=== PATIENT | female | born 1975 ===

== ENCOUNTER → 2016-04-16 | Day surgery (SDC) | payer BC ==
[~2016-04-16] MED LIST: LACTATED RINGER'S 1000 ML INJ 1,000 ML ONE; METHYLERGONOVINE MALEATE 0.2 MG/ML VIAL ONE; MIDAZOLAM HCL 2 MG/2 ML VIAL ONE; ONDANSETRON HCL 4 MG/2 ML VIAL IV PUSH ONE; PROPOFOL 200 MG/20 ML AMP IV ONE; ceFAZolin 2 GM PREMIX 50 ML ONE
--- NOTE | 2016-04-20 19:58 | MP ---
cc: DUSTY ROTH DATE OF SURGERY 04/16/2016 PREOPERATIVE DIAGNOSIS Missed at 8 weeks gestation, history of type 1 diabetes. PROCEDURE D&C with suction. POSTOPERATIVE DIAGNOSIS Missed at 8 weeks gestation, history of type 1 diabetes. The patient maternal blood type is A+. ANESTHESIA General LMA ESTIMATED BLOOD LOSS None. DRAINS None OPERATIVE FINDINGS Retroverted uterus about 7 weeks in size. Products of conception were sent. No other abnormalities or complications were noted. INDICATION A patient with documented intrauterine with failed progression and diagnosed with blighted ovum and missed . The patient elected for medical termination which was not successful and consented for D&C was suctioned. DESCRIPTION OF PROCEDURE The patient received Ancef 2 grams prophylactically. Her blood sugar this morning was 145. The patient underwent general anesthesia with LMA placement. She was carefully positioned in dorsolithotomy position using candy-cane stirrups. She was prepped and draped. Time-out was conducted and agreed by all present in the room. [employer] speculum was used to examine the cervix which was midline, normal in appearance, secured with a single-tooth tenaculum anteriorly and then a uterine sound was placed in a slightly retroverted fashion to about 7 cm. Cervix was dilated to accommodate a curved #8 suction curette. Evacuation of the cavity was performed without complication. No perforation, no active bleeding. Small handheld curette was then used to confirm removal of all products of conception. At the completion of the case, the patient received Methergine 0.2 mg IM. There was no active bleeding. Final count was correct. The patient was stable. She was taken to recovery room on room air. MD STACI Orozco/ /7:47 AM /7:47 PM
== END | disposition home or self-care (01) ==
LOC: ESDC 06:34
PROVIDERS: ATTEND Obstetrics & Gynecology
DX: O02.1 Missed abortion (principal); Z79.4 Long term (current) use of insulin; E11.9 Type 2 diabetes mellitus without complications; Z3A.00 Weeks of gestation of pregnancy not specified
CPT/HCPCS: 01965; 59820; 82948; 88305; J0690; J2210; J2250; J2405; J3010; J7120